=== PATIENT | female | born 1960 | race African-American/Black ===

== ENCOUNTER 2021-07-24 16:11 | Emergency (ER) | payer SELFPAY ==
[~2021-07-24] VITALS: Ht 180.3 cm; Wt 72.0 kg
[2021-07-24] MEDS ORDERED: CLONIDINE 0.1MG TABLET PO NR (17:28)
[2021-07-24] MEDS ORDERED: MORPHINE SULFATE 10 MG/ML CPJ IM NR (17:45)
[2021-07-24 20:55] VITALS: BP 140/90
[2021-07-24] MEDS ORDERED: BUPRENORPHINE 8MG SL TABLET SL ONE (21:15)
[2021-07-24] MEDS ORDERED: BUPRENORPHINE 8MG SL TABLET SL NR (21:30)
== END 2021-07-24 21:28 | disposition home or self-care (01) ==
LOC: ER 16:11
DX: F11.23 Opioid dependence with withdrawal (principal); I49.8 Other specified cardiac arrhythmias
CPT/HCPCS: 93005; 96372; 99283; J2270